=== PATIENT | male | born 1970 | race Caucasian/White ===

== ENCOUNTER 2022-12-21 06:18 | Day surgery (SDC) | payer BC, SELFPAY ==
[2022-12-21] VITALS (40 sets, daily range): BP systolic 78–148; BP diastolic 44–107; PULSE 51–69; RESP 16; TEMP 36.2–36.4; O2SAT 88–100; BMI 31.9
[2022-12-21] MEDS: LACTATED RINGERS 1000 ML 1,000 ML 100 ML IV ×3 (06:40→13:27)
[2022-12-21] MEDS: SODIUM CHLORIDE 0.9 % (FLUSH) 10 ML SYRINGE IVF (06:40)
--- NOTE | 2022-12-21 07:15 | CRLHL7_ITS ---
For Patients: As a result of the Century Cures Act, medical imaging exams and procedure reports are released immediately into your electronic medical record. You may view this report before your referring provider. If you have questions, please contact your health care provider. INDICATION: Left knee surgery. Arthroscopic evaluation. TECHNIQUE: Fluoroscopically guided intraoperative evaluation of the left knee. Four portable spot intraoperative images of the left knee were obtained. FINDINGS: 32.9 seconds fluoroscopy time utilized intraoperatively. Postsurgical change of the left knee. Please see the patient`s surgical note. IMPRESSION: 32.9 seconds fluoroscopy time utilized intraoperatively. Dictated by Raymond Fish MD @ 12/21/2022 3:52:07 PM (Electronically Signed)
[2022-12-21] MEDS: MIDAZOLAM HCL 1 MG/ML inj IVP (07:30)
[2022-12-21] MEDS: fentaNYL 100 MCG/2 ML inj IVP (07:30)
--- NOTE | 2022-12-21 07:30 | SUR.PREOP ---
TIME?OUT:?0731 PT/RN/MDA?VERIFICATION?OF?SURGICAL?SITE,?PROCEDURE,?AND?CONSENT OBTAINED?PRIOR?TO?INVASIVE?PROCEDURE.
[2022-12-21] MEDS: CEFAZOLIN 2 GM in 0.9 % SODIUM CHLORIDE Mini-bag 100 ML IVPB (07:51)
--- NOTE | 2022-12-21 09:03 | W.ANESCHARGE ---
Anesthesia Charges Start Date/Time Anesthesia Start Date: 12/21/22 Anesthesia Start Time: 08:11 Stop Date/Time Anesthesia Stop Date: 12/21/22 Anesthesia Stop Time: 12:33
--- NOTE | 2022-12-21 09:03 | W.PM.NB ---
Nerve Block Nerve Block Time Seen by Provider: 07:34 Date Seen: 12/21/22 Type of block requested by surgeon for post-operative analgesia: popliteal Side: left Time out performed: Yes Verification of patient name: Yes Verification of date of : Yes Site marking: site marked Name of person performing procedure: Danish Continuous monitoring Was continuous monitoring of O2 sat, B/P, night monitor, recorded every 15 minutes?: Yes Procedure Checklist: sterile prep, needles and gloves Ultrasound guided. Images saved: Yes Medications given in 5ml increments after negative aspiration: Ropivicaine %: 0.5 mL: 20 Needle gauge: 22 Patient tolerated procedure well: Yes Additional comments: Needle noted adjacent to nerve Block Charges Block Charge (with Pro Fee): Sciatic Nerve Use of Ultrasound Machine for Block: Yes- US Guidance/pain block
--- NOTE | 2022-12-21 09:03 | W.PM.NB ---
Nerve Block Nerve Block Time Seen by Provider: 07:34 Date Seen: 12/21/22 Type of block requested by surgeon for post-operative analgesia: femoral Side: left Time out performed: Yes Verification of patient name: Yes Verification of date of : Yes Site marking: site marked Name of person performing procedure: Danish Continuous monitoring Was continuous monitoring of O2 sat, B/P, [employer] wms consultant, recorded every 15 minutes?: Yes Procedure Checklist: sterile prep, needles and gloves Ultrasound guided. Images saved: Yes Medications given in 5ml increments after negative aspiration: Ropivicaine %: 0.5 mL: 20 Needle gauge: 20 Patient tolerated procedure well: Yes Additional comments: Needle noted adjacent to nerve Block Charges Block Charge (with Pro Fee): Femoral Nerve Use of Ultrasound Machine for Block: Yes- US Guidance/pain block
--- NOTE | 2022-12-21 11:25 | PM.ORPRC ---
Procedure Note Date of procedure: 12/21/22 Procedure: PREOPERATIVE DIAGNOSIS: 1. Left knee PCL tear, acute, traumatic, high-grade partial, if not complete 2. Left knee ACL tear, acute, traumatic, high-grade partial, if not complete 3. Left knee MCL sprain/ tear, proximal, grade 3, acute, traumatic POSTOPERATIVE DIAGNOSIS: 1. Left knee PCL tear, acute, traumatic, high-grade partial, if not complete 2. Left knee ACL tear, acute, traumatic, high-grade partial, if not complete 3. Left knee MCL sprain/ tear, proximal, grade 3, acute, traumatic PROCEDURE: 1. Left knee arthroscopically assisted PCL reconstruction with graft link allograft; 11 x 90 mm pre-formed 2. Left knee arthroscopically assisted ACL reconstruction with graft link allograft; 9.5 x 68 mm pre-formed 3. Left knee open MCL/ extra-articular ligament repair 4 [id number] - intraoperative fluoroscopy > 1 hour. SURGEON: Dada Redmond M.D. MACHINE PLATE STACKER: Rodney Gan PA-C; Jarvis CHARLES. Of note, a skilled cardiovascular physician assistant was critical for this case to aid in patient positioning, knee manipulation, instrument exchange, graft preparation, suture passage and identification, and closure. ANESTHESIA: Spinal plus adductor canal block EBL: 100 mL TOURNIQUET: 125 min at 300 torr IMPLANTS: Arthrex femoral tight rope button (x2); Arthrex tibial ABS button (x2); Arthrex 4.75 mm peek SwiveLock suture anchor (x2); Arthrex 4.75 mm BioComposite SwiveLock suture anchor (x2) COMPLICATIONS: None evident INDICATIONS: The patient is a pleasant 52-year-old male. He sustained a left knee injury while downhill skiing approximately 4-6 weeks ago. This resulted in a traumatic left knee injury leaving him with significant instability. MRI was obtained following physical exam. This revealed high-grade partial if not full-thickness tearing of the ACL, PCL, and proximal MCL. Physical exam showed strong pulses at dorsalis pedis and posterior tibialis positions. Neurologically he remains intact in all 5 dermatomes and myotomes left lower extremity as well. Given the significant knee trauma and ligament instability consistent with physical exam, surgery was indicated to reconstruct his ACL and PCL and repairs MCL. FINDINGS: Exam under anesthesia revealed grade 3 posterior drawer. Grade 2-3 anterior drawer, difficult to assess were is neutral was given both ligament being torn. Reference of the tibial shelf relative to the medial femoral condyle was utilized. Grade 3 laxity with valgus stress at 30? and to lesser degree grade 2 laxity with valgus stress at 0? knee flexion. Stable to varus stress at 0 and 30?. Dial test showed symmetry at 30 and 90?. 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 Medial and lateral menisci were intact. Medial compartment had significant gapping with valgus stress showing 15 mm of gapping. The meniscus had excellent visualization including the posterior root and posterior meniscal capsular junction. This was all intact. Lateral meniscus was also intact and healthy. Lateral root was intact both anteriorly and posteriorly. The ACL and PCL both had significant hemorrhage and petechiae within it and a significant empty wall sign along the medial femoral condyle for the PCL and to a lesser degree along the lateral femoral condyle for the ACL attachment. DESCRIPTION OF PROCEDURE: After a thorough discussion of risks, benefits, and alternatives, the patient was brought to the operating room and placed upon the operating table. Induction of anesthesia was undertaken as previously noted. 2 g IV Ancef was administered within 1 hr of incision preoperatively. Appropriate time-out was performed identifying proper patient, site, and procedure. The left lower extremity was prepped and draped in the appropriate sterile fashion using ChloraPrep. The limb was exsanguinated and tourniquet inflated. Anterolateral and anteromedial portals were established with an 11 blade, and a diagnostic arthroscopy was performed. This identified the findings as noted above. Following the diagnostic arthroscopy, attention was turned to preparing the allograft on the back table for passage, and preparing the tunnels which were drilled in independent technique utilizing a Flip cutter for the tibial tunnel and both grafts and the femoral tunnel on the ACL. A low-profile Reamer was utilized for the femoral tunnel on the PCL. A posterior-medial portal Was created for visualization and also as a working portal. For the tibial tunnel, a 10.5 mm flip cutter was utilized after preparing the posterior central part of the tibia with both the shaver and electrocautery device down to posterior tibial crest the could be hopefully the tibial guide. We did visualize the popliteal muscle fibers confirming that we had access the far posterior tibial lip. We released the capsule down to the popliteal muscle fibers. The tibial guide was then hooked along the posterior edge of the tibia, and C-arm fluoroscopic imaging was utilized to confirm proper trajectory and positioning of the drill. The flipcutter was 1st passed, confirmed to be in appropriate position along the far posterior central aspect of the tibia. On the posterior tibial shelf which was far below the articular surface. The flip cutter was flipped, and retro cut back approximately 55 mm. We then turned our attention to the femoral prep. A low anterolateral portal was established aiming roughly at the 11 o'clock position along the medial femoral wall with the goal of creating the tunnel right at the articular margin. The low profile 10.5 mm reamer was 1st placed against the femur to confirm proper position and a guide pin was then subsequently drilled out the medial femur. The tunnel depth was then reamed to approximately 35 mm, and passing sutures were grasped through single anterolateral portal to avoid tissue bridge. we then turned attention to the ACL bone tunnel creation. The FlipCutter was utilized on the femur. A 9.5 mm FlipCutter was utilized consistent with a graft diameter. On the tibial side, a FlipCutter was also utilized again with a 9.5 mm tunnel. Tunnel location was as per typical. Independent tunnel drilling technique with the flip cutter utilized. The bone debris was evacuated from throughout the knee. Showing suture was captured so as not have a tissue bridge, and attention was turned for graft passage. We began with the PCL graft: The graft was then passed down the tibia and over dunked, and the sutures were then passed through the femur. There is a little bit of back in forth on the femoral side due to the need for a button bleeding passing stitch, but once this was passed and the button flipped, was confirmed on C-arm to be apposed against the medial femoral condyle. The sutures were cycled drawing up the graft into the femoral tunnel and dunking 20 mm into the tunnel. We then inspected the posterior tibia and found that indeed this was dunked to at least 20 mm as well. The knee was cycled numerous times, and full extension achieved but securing of the graft was performed in 90? of flexion with a slight anterior drawer applied. we then passed the ACL graft: A graft was passed 1st into the femoral tunnel and then dunked down into the tibial portion. Again approximately 20 mm of graft was passed into the femoral tunnel but room was left for final tensioning after the ABS button would be applied in the tibia. We applied the ABS buttons for both the PCL and the ACL which were an independent tunnels, and cycled the graft to confirm proper tensioning. The FiberTape internal brace sutures which were utilized in both the PCL and the ACL were also passed through their respective ABS buttons and eventually secured in a separate SwiveLock further distal on the tibia again, independently from each other. At this time, tourniquet was deflated, we turned our attention MCL repair. A medial incision was made along the medial femoral epicondyle and approximately 5-6 cm distal from the medial tibial plateau. Sharp incision through skin and blunt dissection through subcutaneous tissue allowed identification of the respective fascial layers. The sartorial fascia was incised proximally. This was elevated from the MCL. This tissue showed significant scarring and fibrosis. This was mobilized/elevated from the deep capsular layer. The tissue was eventually whip stitch with the suture tape in a Krackow manner distally and then back proximally. The tails were dunked into a SwiveLock into the femur just proximal posterior to the medial femoral epicondyle. Caution was taken with pin location to avoid the PCL suture/ tunnel location. Prior to actually fixing the MCL, a guide pin was placed in the femoral location and also in the tibial location. This was aimed just proximal to the pes answering tendons and approximately 3-4 mm anterior to the posterior tibial crest. Again we are attempting to avoid the tibial tunnels for ACL and PCL grafts. Guide pins were placed, a suture was placed around them, and assessed for some a tree by placing the right knee through a range of motion and assessing how much tension changed on this suture around the guide pins. This was felt to be in excellent location, and thus the anchors were drilled, placed proximally, the internal brace sutures passed deep to the sartorial fascia and secured into the tibial MCL repair site with a BioComposite SwiveLock suture anchor ( the same type of anchor utilized for the femoral MCL repair). Of note, tension for the MCL was performed in approximately 30? of knee flexion with slight varus and neutral tibial rotation. We then returned back to the ACL and PCL tensioning. After securing the internal brace for the PCL with the size graft suture, we then secured the ACL internal brace and graft suture through their own peek SwiveLock suture anchors within the tibia just distal to the ABS buttons themselves. The PCL underwent final tension with the knee at 90? of flexion and anterior drawer load. Final tensioning was performed on the femoral side. We then did final tension on the femoral side for the ACL with the knee near full extension and a posterior drawer applied. The knee was placed through range of motion found that excellent ability to achieve full motion yet excellent stability with Nitesh's, posterior drawer, and valgus load. Thereafter, closure was performed with 2-0 Vicryl and 4-0 Monocryl to close the subcutaneous and subcuticular layers, respectively. Dressings were applied, tourniquet deflated, the patient awoken from anesthesia and transferred to the PACU in stable condition. a skilled cardiovascular physician assistant was critical for this case to aid in patient positioning, knee manipulation, instrument exchange, graft preparation, suture passage and identification, and closure. PLAN: 1. Weightbear as tolerated operative extremity. Crutch / walker ambulation assistance PRN. 2. Ice, acetominophen and/or ibuprofen, and Percocet for pain as needed. 3. Knee range of motion and quad sets/straight leg raise regularly, guided by physical therapy. 4. Follow up with PA visit in 1-2 weeks for a wound check.
[2022-12-21] MEDS: CEFAZOLIN 2 GM INJ IVP (12:00)
--- NOTE | 2022-12-21 12:32 | W.ANESCHARGE ---
Anesthesia Charges Start Date/Time Anesthesia Start Date: 12/21/22 Anesthesia Start Time: 08:11 Stop Date/Time Anesthesia Stop Date: 12/21/22 Anesthesia Stop Time: 12:33
[2022-12-21] MEDS: MEPERIDINE 25 MG/ML INJ 12.5 MG IVP (12:46)
[2022-12-21] MEDS: HYDROmorphone 0.5 mg/0.5 ml inj IVP (13:08)
[2022-12-21] MEDS: OxyCODONE/APAP 5-325 TABLET PO (13:27)
== END 2022-12-21 14:47 | disposition home or self-care (01) ==
PROVIDERS: PCP Family Medicine; Visit Provider Orthopaedic Surgery Sports Medicine
PROC: (CPT 29888; principal; 2022-12-21 07:30)
DX: S83.512A Sprain of anterior cruciate ligament of left knee, initial encounter (principal); S83.522A Sprain of posterior cruciate ligament of left knee, initial encounter; S83.412A Sprain of medial collateral ligament of left knee, initial encounter
CPT/HCPCS: 29888; 29889; 27405; 01400; 73562; 76000; 76942; A9270; C1713; C1762; J0330; J0690; J1100; J1170; J2175; J2250; J2405; J2704; J2795; J3010; J7120; L1833

== ENCOUNTER 2023-08-03 09:15 | Outpatient (RCR) | payer BC, SELFPAY | END 2023-10-12 13:15 | disposition home or self-care (01) | PROVIDERS: PCP Family Medicine; Visit Provider Orthopaedic Surgery Sports Medicine | DX: S83.512A Sprain of anterior cruciate ligament of left knee, initial encounter (principal); S83.412A Sprain of medial collateral ligament of left knee, initial encounter; S83.522A Sprain of posterior cruciate ligament of left knee, initial encounter; M25.562 Pain in left knee; R60.0 Localized edema; R29.898 Other symptoms and signs involving the musculoskeletal system; Z51.89 Encounter for other specified aftercare | CPT/HCPCS: 97110; 97112; 97116; 97140; 97162 ==